=== PATIENT | female | born 1975 | race Caucasian/White ===

== ENCOUNTER 2017-08-10 00:18 | Inpatient (IN) | payer OTHER ==
[~2017-08-10] VITALS: Ht 170.2 cm; Wt 66.6 kg
[~2017-08-10 00:18] MED LIST: AMBIEN; AMOXIL 875 MG875 M1 PO; CIPRO500 MG PO; CLONAZEPAM; IBUPROFEN 800800 MG PO; LIDODERM 5%1 PATC1 TOP; LORTABELXR PO; MINOCIN100 MG PO; NORCO 5-325 TA1 EACH PO; OXYCODONE HCL 55 MG PO; SENNA PO; TRAMADOL 50 MG50 MG PO; XANAX 0.5 MG0.5 MG PO; ZPAK PO
[2017-08-10 00:20] VITALS: BP 109/67
[2017-08-10 01:29] LABS: ABSOLUTE BASOPHILS 0.1 thou/uL (0.0-0.2); ABSOLUTE EOSINOPHILS 0.4 thou/uL (0.0-0.7); ABSOLUTE LYMPHOCYTES 2.2 thou/uL (0.8-5.3); ABSOLUTE MONOCYTES 0.7 thou/uL (0.0-1.2); ABSOLUTE NEUTROPHILS 5.5 thou/uL (1.6-8.1); BASOPHILS 1.3 %; EOSINOPHILS 4.3 %; HEMATOCRIT 34.9 % (37.0-47.0); HEMOGLOBIN 11.7 gm/dL (12.0-15.0); LYMPHOCYTES 24.7 %; MCH 27.5 pg (26.0-34.0); MCHC 33.5 g/dL (28.0-37.0); MPV 6.7 fl. (7.2-11.1); NUCLEATED RBCS 0 /100WBC; PLATELET COUNT* 382 thou/uL (150-400); POLYS 61.7 %; RBC 4.25 mil/uL (4.20-5.00); RDW-CV 14.5 % (10.5-14.5); WBC 8.9 thou/uL (4.0-11.0)
[2017-08-10 01:37] LABS: CALCIUM 8.7 mg/dL (8.5-10.1); CREATININE 0.8 mg/dL (0.6-1.3)
[2017-08-10 01:41] LABS: ALBUMIN 3.2 g/dL (3.4-5.0); TOTAL BILIRUBIN 0.1 mg/dL (<0.1-1.0); TOTAL PROTEIN 7.2 g/dL (6.4-8.2)
[2017-08-10 07:20] VITALS: BP 105/60
--- NOTE | 2017-08-10 09:08 | NUR ---
breakfast tray provided, patient ate 100%.
[2017-08-10 10:18] LABS: URINE BILIRUBIN NEGATIVE (Negative); URINE BLOOD NEGATIVE (Negative); URINE CLARITY CLEAR; URINE COLOR YELLOW; URINE GLUCOSE-RANDOM NEGATIVE (Negative); URINE KETONES NEGATIVE (Negative); URINE LEUKOCYTES-REFLEX TRACE (Negative); URINE NITRITE-REFLEX NEGATIVE (Negative); URINE PROTEIN NEGATIVE (Negative); URINE UROBILINOGEN 0.2 E.U./dl (0.2-1.0)
[2017-08-10 10:26] LABS: BACTERIA-REFLEX 1-9 Few /HPF (None Seen); CASTS None Seen /LPF (None Seen); CRYSTALS None Seen /LPF (None Seen); SQUAMOUS 4-10 Moderate /LPF (0-3); URINE RBC 0-2 Rare /HPF (0-2); URINE WBC-REFLEX 0-5 Rare /HPF (0-5)
[2017-08-10 10:27] LABS: AMP/METHAMP POSITIVE (Negative); BARBITURATES Negative (Negative); BENZODIAZEPINES Negative (Negative); COCAINE Negative (Negative); METHADONE Negative (Negative); OPIATES POSITIVE (Negative); PCP Negative (Negative); THC Negative (Negative)
[2017-08-10 11:03] VITALS: BP 109/60
[2017-08-10 13:50] VITALS: BP 110/62
[2017-08-10 14:03] VITALS: BP 113/65
--- NOTE | 2017-08-10 14:57 | NUR ---
PT ARRIVED TO THE FLOOR AT 1354. PT ORIENTED TO UNIT AND SERVICES. PT IS A&O X4 BUT LETHARGIC AND HAS DIFFICULTY STAYING AWAKE. SHE WAS FALLING ASLEEP MID SENTENCE. PT HAS POOR HYGEINE AND A DISHELVED APPEARANCE. PT REQUEST PAIN MEDICATION BUT WHEN TOLD SHE ONLY HAD TYLENOL SHE REFUSED. PT ATE LUNCH AND IS CURRENTLY SLEPPING. NURSING WILL CONTINUE TO MONITOR.
--- NOTE | 2017-08-10 17:58 | NUR ---
PT REQUEST TO BE DISCHARGED AMA. DR BACA CONTACTED TO NOTIFY OF PT WISHES AND AGREED THAT THE PT MAY LEAVE AMA. RISK AND BENIFITS WERE EXPLAINED TO THE PT AND SHE VERBALIZED UNDERSTANDING. PT IV AND COMBINATION TECHNICIAN WERE REMOVED PER HER REQUEST. PT HAS ALL HER PERSONAL BELONGINGS THAT SHE CAME IN WITH.
--- NOTE | 2017-08-10 18:47 | NUR ---
PT REQUESTED TO BE DISCHARGED AMA AND LEFT THE FLOOR. SHE RETURNED ABOUT 15 MIN LATER AND NOW STATES SHE IS STILL WAITING FOR HER RIDE. THIS NURSE SPOKE WITH THE PATIENTS AUNT AND SHE SAID THAT THE PATIENTS MOTHER WAS ON THE WAY TO BEAD MAKER THE PT.
--- NOTE | 2017-08-11 07:54 | CON ---
[address] [address] CONSULTATION Name: ORLANDO VALENTIN Room: [address] IN M.R.#: [id number] Admission: 08/10/17 Attend Phys: Chepe Ferrara Discharge: 08/10/17 Date of : 77 Report #: [id number] THIS REPORT FOR: //name// CC: KENA physician/PCP Wing Carcamo DATE OF SERVICE: 08/10/2017 INFECTIOUS DISEASE CONSULTATION ATTENDING PHYSICIAN: Wing Carcamo DO REASON FOR EVALUATION: Multiple skin and soft tissue infections, abscess/cellulitis. HISTORY OF PRESENT ILLNESS: Chart reviewed, the patient examined. This is a 42-year-old, I am actually familiar with her twice while hospitalized last year, has injection drug use, developed multisite abscesses. She is known to have previous culture with MRSA. She was evaluated in the Emergency Room, underwent incision and drainage procedure of the lesion involving the left forearm, was found to have positive drug screen. Urinalysis unremarkable. Chest x-ray was otherwise unremarkable. Gram stain did not note any organisms, although moderate white cells, started empirically on vancomycin, also given a dose of ceftriaxone, levofloxacin as well. ALLERGIES: CODEINE, PROPOXYPHENE. CURRENT MEDICATIONS: Include above noted antibiotics one time dosing, lorazepam, nicotine, melatonin, p.r.n. analgesics, antiemetics. PAST MEDICAL HISTORY: As described above, history of pancreatitis, hepatitis C, skin and soft tissue infections. SOCIAL HISTORY: Current injection drug use, typically, heroin or methamphetamine, does smoke a pack a day for the last 10 years, occasional ethanol. FAMILY HISTORY: Noncontributory. REVIEW OF SYSTEMS: Not obtainable. PHYSICAL EXAMINATION: GENERAL: She appears chronically ill, undernourished. She is quite somnolent, unable to arouse. She is with regular breathing pattern. HEENT: Unremarkable. VITAL SIGNS: Temperature 97.7, pulse 89, respirations 22, [place] [address] CONSULTATION [facility] Room: [address]#: [id number] Admission: 08/10/17 Attend Phys: Chepe Ferrara Discharge: 08/10/17 Date of : 77 Report #: [id number] 113/65. SKIN: Warm with multiple sites including left forearm has a dressing over the previously I and D'd lesion. Several areas of scarring, evidence of needle alonzo. LUNGS: Generally clear breathing sonorous. ABDOMEN: Soft. There is no apparent tenderness. There are no peritoneal signs. GENITOURINARY: Deferred. RECTAL: Deferred. LABORATORY DATA: Urinalysis 0-5 white cells. Lactic acid 0.7. Electrolytes: Sodium 140, potassium 4.0, chloride 102, bicarbonate is 32, anion gap of 6, BUN and creatinine 16 and 0.8. LFTs unremarkable. Albumin of 3.2, total protein 7.2, estimated GFR of 79. CBC: White count of 8.9, H and H 11.7 and 34.9, platelets of 382. ASSESSMENT AND PLAN: Multifocal skin and soft tissue infections manifested as abscess, some surrounding cellulitis. We will continue vancomycin as prescribed given her history of methicillin-resistant Staphylococcus aureus. Await culture results, incision and drainage sites as required. Continue wound care. Monitor for evidence of withdrawal. <ELECTRONICALLY SIGNED> By: Clay Allen MD 08/11/17 [id number] 0000Josemiroslava Allen MD /nt
== END 2017-08-10 18:54 | disposition left against medical advice (07) | DRG 603 ==
LOC: M.ERS 00:18 → M.TBA-ER 02:55 → M.2W 13:56
PROVIDERS: Emergency Medicine; ADMIT Internal Medicine
PROC: 0J9H3ZZ Drainage of Left Lower Arm Subcutaneous Tissue and Fascia, Percutaneous Approach (ICD-10-PCS; principal; 2017-08-10)
DX: L03.114 Cellulitis of left upper limb (principal); L03.116 Cellulitis of left lower limb; L02.414 Cutaneous abscess of left upper limb; F43.10 Post-traumatic stress disorder, unspecified; F17.210 Nicotine dependence, cigarettes, uncomplicated; F15.10 Other stimulant abuse, uncomplicated; F11.10 Opioid abuse, uncomplicated; Z86.19 Personal history of other infectious and parasitic diseases; Z88.6 Allergy status to analgesic agent; Z88.8 Allergy status to other drugs, medicaments and biological substances; Z86.14 Personal history of Methicillin resistant Staphylococcus aureus infection

== ENCOUNTER 2018-10-21 22:04 | Emergency (ER) | payer OTHER ==
[~2018-10-21] VITALS: Ht 170.2 cm; Wt 59.0 kg
[2018-10-21 23:18] VITALS: BP 115/75
== END 2018-10-21 23:18 ==
LOC: M.ERS 22:04
DX: F41.9 Anxiety disorder, unspecified (principal); F17.210 Nicotine dependence, cigarettes, uncomplicated; Z86.19 Personal history of other infectious and parasitic diseases; Z98.890 Other specified postprocedural states; Z88.5 Allergy status to narcotic agent; Z88.8 Allergy status to other drugs, medicaments and biological substances